=== PATIENT | male | born 1995 ===

== ENCOUNTER 2023-04-14 15:38 | Outpatient (REF) | payer MEDICAID, SELFPAY ==
[2023-04-14 22:22] LABS: Calculated LDL 140 mg/dL (<100); Cholesterol 229 mg/dL (<200); Glucose 89 mg/dL (74-106); HDL Cholesterol 70 mg/dL (40-60); Triglyceride 97 mg/dL (<150)
[2023-04-16 10:51] LABS: Hepatitis C Ab w Rflx HCV PCR Negative (Negative)
[2023-04-16 10:57] LABS: HIV-1/2 Ag & Ab Screen Negative (Negative)
[2023-04-16 11:15] LABS: HBs Antibody, Quant <3.1 mIU/mL (See Note); Hepatitis B Surface Ab Negative (See Note)
[2023-04-16 12:09] LABS: Syphilis Serology (RPR) Negative (Negative)
[2023-04-16 14:02] LABS: Chlamydia Result Negative (Negative); GC Result Negative (Negative)
== END 2023-04-14 15:39 | disposition home or self-care (01) ==
LOC: NCHCN 15:38
PROVIDERS: Visit Provider Nurse Practitioner Family
DX: Z11.59 Encounter for screening for other viral diseases (principal); Z11.4 Encounter for screening for human immunodeficiency virus [HIV]; F10.90 Alcohol use, unspecified, uncomplicated; Z71.6 Tobacco abuse counseling; F17.200 Nicotine dependence, unspecified, uncomplicated; Z86.19 Personal history of other infectious and parasitic diseases; Y90.9 Presence of alcohol in blood, level not specified
CPT/HCPCS: 80061; 82947; 86706; 86803; 87389; 87491; 87591; 86592

== ENCOUNTER → 2024-03-15 13:35 | Outpatient (CLI) | payer MEDICAID, SELFPAY ==
--- NOTE | 2024-03-15 13:15 | DI.RAD_ITS ---
Exam(s) XR CHEST 2V PA LATERAL EXAM: XR CHEST 2V PA LATERAL CLINICAL HISTORY: evaluate pneumonia, URI, J06.9 TECHNIQUE: 2D digital imaging was performed of the chest. Two images were obtained. PA and lateral views were obtained. COMPARISON: No exams were available for comparison FINDINGS: MEDIASTINUM: Normal. HEART: Normal. PULMONARY VASCULATURE: Normal. LUNGS: Clear. PLEURAL SPACE: No pleural effusion or pneumothorax. BONE:Within normal limits for the patient's age. OTHER FINDINGS:Normal. IMPRESSION: No acute pulmonary findings. DATA REPOSITORY: RADIATION DOSE DELIVERED:
== END ==
PROVIDERS: Visit Provider Nurse Practitioner Family
DX: J06.9 Acute upper respiratory infection, unspecified (principal)
CPT/HCPCS: 71046

== ENCOUNTER 2025-05-11 16:04 | Outpatient (REF) | payer BC, SELFPAY ==
[2025-05-14 09:35] LABS: HIV-1/2 Ag & Ab Screen Negative (Negative)
[2025-05-14 09:55] LABS: Hepatitis C Ab w Rflx HCV PCR Negative (Negative)
[2025-05-14 11:42] LABS: Syphilis Serology (RPR) Negative (Negative)
== END 2025-05-11 16:05 | disposition home or self-care (01) ==
LOC: NCHCN 16:04
PROVIDERS: Visit Provider Physician Assistant
DX: Z11.3 Encounter for screening for infections with a predominantly sexual mode of transmission (principal)
CPT/HCPCS: 86803; 87340; 87389; 87491; 87591; 86592

== ENCOUNTER 2025-05-16 21:17 | Outpatient (REF) | payer BC, SELFPAY ==
[2025-05-18 12:16] LABS: Chlamydia Result Negative (Negative); GC Result Negative (Negative)
== END 2025-05-16 21:18 | disposition home or self-care (01) ==
LOC: NCHCN 21:17
PROVIDERS: Visit Provider Physician Assistant
DX: Z11.3 Encounter for screening for infections with a predominantly sexual mode of transmission (principal)
CPT/HCPCS: 87491; 87591